=== PATIENT | male | born 1990 | race Two or more races ===

== ENCOUNTER 2016-12-22 13:06 | Emergency (ER) | payer OTHER ==
[~2016-12-22] VITALS: Ht 175.3 cm; Wt 54.4 kg
== END 2016-12-22 15:52 | disposition home or self-care (01) ==
LOC: CFTX 13:06 → CED 13:06 → CFTX 15:43
DX: J06.9 Acute upper respiratory infection, unspecified (principal)
CPT/HCPCS: 99283